=== PATIENT | male | born 1945 | race American Indian/Alaskan Native ===

== ENCOUNTER 2020-07-28 07:22 | Observation (INO) | payer MEDICARE ==
[2020-07-28] MEDS ORDERED: ASPIRIN EC 325 MG TAB PO ONE (07:56)
[2020-07-28] MEDS ORDERED: SODIUM CHLORIDE 0.9% 500 ML 500 ML IV SCH (08:00)
[2020-07-28] MEDS ORDERED: HEPARIN/NS 5000 UNIT/500ML 1,000 ML IR ONE (08:16)
[2020-07-28 08:28] LABS: Basophils % (Auto) 0.9 % (0.0-1.8); Eosinophils # (Auto) 0.1 K/mm3 (0.0-0.4); Eosinophils % (Auto) 1.6 % (0.0-4.3); Hematocrit 44.4 % (35.5-45.6); Hemoglobin 15.2 gm/dl (11.8-15.2); Lymphocytes # (Auto) 1.5 K/mm3 (1.2-5.4); Lymphocytes % (Auto) 28.7 % (13.4-35.0); Mean Corpuscular HGB Conc 34 % (32-34); Mean Corpuscular Volume 89 fl (84-94); Monocytes # (Auto) 0.4 K/mm3 (0.0-0.8); Monocytes % (Auto) 7.9 % (0.0-7.3); Platelet Count 243 K/mm3 (140-440); Red Cell Distribution Width 14.8 % (13.2-15.2)
[2020-07-28 08:38] LABS: INR 0.94 (0.87-1.13)
[2020-07-28 08:39] LABS: Partial Thromboplastin Time 23.9 Sec. (24.2-36.6)
[2020-07-28 08:41] LABS: BUN/Creatinine Ratio 12; Blood Urea Nitrogen 12 mg/dL (9-20); Hemolysis Index 3
[2020-07-28] MEDS ORDERED: CLOPIDOGREL 75 MG TAB ONE (08:43)
[2020-07-28] MEDS: CLOPIDOGREL 75 MG TAB PO SCH ×2 (08:51→15:27)
[2020-07-28] MEDS ORDERED: POTASSIUM CHLORIDE ER 20 MEQ TAB PO ONE ×2 (09:13→09:18)
[2020-07-28] MEDS: MIDAZOLAM 2 MG/2 ML INJ ONE ×2 (09:56→10:15)
[2020-07-28] MEDS: fentaNYL 100 MCG/2 ML INJ ONE ×2 (09:56→10:15)
[2020-07-28] MEDS: HEPARIN 10,000 UNITS/10 ML VIAL ONE ×3 (09:57→10:25)
[2020-07-28] MEDS: LIDOCAINE (2%) 20 MG/1 ML VIAL 20 ML MDV INFILTRATI ONE ×2 (09:57→10:15)
[2020-07-28] MEDS: VERAPAMIL 5 MG/2 ML INJ ONE ×2 (09:58→10:17)
[2020-07-28] MEDS: NITROGLYCERIN SYRINGE 3 ML ONE ×2 (09:59→10:17)
[2020-07-28] MEDS ORDERED: HEPARIN 10,000 UNITS/10 ML VIAL ONE (10:40)
[2020-07-28] MEDS ORDERED: CLOPIDOGREL 300 MG TAB ONE (10:48)
[2020-07-28] MEDS ORDERED: ALUM-MAG HYDROXIDE-SIMETHICONE 200-200-20MG/5ML ORAL LIQD 30 ML ONE (10:48)
[2020-07-28] MEDS ORDERED: DEXTROSE 50% IN WATER (25GM) 50 ML SYRINGE IV PRN (11:02)
--- NOTE | 2020-07-28 11:20 | Short Stay Summary ---
Short Stay Documentation Date of service: 07/28/20 - History H&P: obtained from office - Allergies and Medications Current Medications: Allergies No Known Allergies Allergy (Unverified 04/26/13 12:38) Home Medications Medication Instructions Recorded Confirmed Last Taken Type Aspirin [Baby Aspirin] 81 mg PO DAILY 09/16/13 07/28/20 07/27/20 History 81 mg Clopidogrel Bisulfate [Clopidogrel] 75 mg PO DAILY 09/16/13 07/28/20 07/28/20 08:21 History 1 tab Isosorbide Mononitrate [Isosorbide 30 mg PO DAILY 09/16/13 07/28/20 07/27/20 History Mononitrate ER] 1 tab Losartan/Hydrochlorothiazide 1 tab PO DAILY 09/16/13 07/28/20 07/27/20 History [Losartan-Hctz 100-25 mg Tab] 1 tab Metformin HCl 500 mg PO BID 09/16/13 07/28/20 09/15/13 History Metoprolol [Lopressor TAB] 50 mg PO DAILY 09/16/13 07/28/20 07/27/20 10:00 History Ranolazine [Ranexa] 500 mg PO BID 09/16/13 07/28/20 09/15/13 History Rosuvastatin Calcium [Crestor] 20 mg PO DAILY 09/16/13 07/28/20 09/15/13 History hydrALAZINE [Apresoline TAB] 25 mg PO TID 09/16/13 07/28/20 09/15/13 History Dapagliflozin Propanediol [Farxiga] 10 mg PO DAILY 07/28/20 07/28/20 07/27/20 History [address] [DepaKOTE DR] 250 mg PO DAILY 07/28/20 07/28/20 07/27/20 History 250 mg Exenatide Microspheres [Bydureon] 2 mg SQ 1XW 07/28/20 07/28/20 07/27/20 History 1 tab Furosemide [Lasix] 20 mg PO QDAY 07/28/20 07/28/20 07/27/20 10:00 History 1 tab Gabapentin [Neurontin] 100 mg PO Q8HR 07/28/20 07/28/20 07/27/20 History 100 mg Memantine HCl [Namenda Xr] 14 mg PO DAILY 07/28/20 07/28/20 07/27/20 History 14 mg Sitagliptin Phosphate [Januvia] 100 mg PO DAILY 07/28/20 07/28/20 07/27/20 History 100 mg amLODIPine [Norvasc] 10 mg PO DAILY 07/28/20 07/28/20 07/27/20 History 1 tab traMADoL [Ultram] 50 mg PO Q6HR PRN 07/28/20 07/28/20 07/27/20 History 50 mg Active Medications Hydrocodone Bitart/Acetaminophen (Hydrocodone/Acetaminophen 5-325 Mg Tab) 1 each PO Q6H PRN PRN Reason: Pain, Moderate (4-6) Amlodipine Besylate (Amlodipine 10 Mg Tab) 10 mg PO DAILY JESS Aspirin (Aspirin 81 Mg Tab Chew) 81 mg PO DAILY JESS Atorvastatin Calcium (Atorvastatin 20 Mg Tab) 20 mg PO QHS JESS Clopidogrel Bisulfate (Clopidogrel 75 Mg Tab) 75 mg PO QDAY [facility] Last Admin: 07/28/20 08:51 Dose: 75 mg Documented by: Dextrose (Dextrose 50% In Water (25gm) 50 Ml Syringe) 50 ml IV Q30MIN PRN; Protocol PRN Reason: Hypoglycemia Furosemide (Furosemide 20 Mg Tab) 20 mg PO QDAY [facility] Sodium Chloride (Nacl 0.9% 500 Ml) 500 mls @ 50 mls/hr IV DIRECT JESS Stop: 07/28/20 17:59 Last Admin: 07/28/20 09:59 Dose: 100 mls Documented by: Insulin Human Lispro (Insulin Lispro 100 Unit/Ml) 0 unit SUB-Q ACHS JESS; Protocol Isosorbide Mononitrate (Isosorbide Mononitrate Er 30 Mg Tab) 30 mg PO DAILY [facility] Metoprolol Succinate (Metoprolol Succinate Xl 50 Mg Tab) 50 mg PO QDAY [facility] Miscellaneous Medication (Losartan/Hydrochlorothiazide [Losartan-Hctz 100-25 Mg Tab]) 1 tab PO DAILY JESS - Brief post op/procedure progress note Date of procedure: 07/28/20 Pre-op diagnosis: CAD Post-op diagnosis: same Procedure: LHC with PCI - see dictated cath report Anesthesia: local Estimated blood loss: none Condition: stable - Disposition Condition at discharge: Good Disposition: [id number] TO HOME OR SELFCARE - Discharge Diagnoses (1) CAD (coronary artery disease) Status: Chronic (2) Stented coronary artery Status: Chronic (3) HTN (hypertension) Status: Chronic (4) Diabetes Status: Chronic (5) RENETTA (obstructive sleep apnea) Status: Chronic Short Stay Discharge Plan Activity: advance as tolerated Diet: low fat, low cholesterol, low salt, diabetic Wound: open to air, keep clean and dry, per your surgeon's advice Follow up with: THELMA JENSEN MD [Primary Care Provider] - 7 Days LEO DOLL MD [Staff Physician] - 7 Days ([place] office, 08/09/2020 @ 3:30PM)
[2020-07-28] MEDS ORDERED: HYDROcodone/ACETAMINOPHEN 5-325 MG TAB PO PRN (12:00)
--- NOTE | 2020-07-28 12:05 | Cardiac Catherization Report ---
LEFT HEART CATHETERIZATION PERCUTANEOUS CORONARY INTERVENTION/INTRAVASCULAR ULTRASOUND REPORT REFERRING PHYSICIAN: Dr. Maria Elena Max. CLINICAL INFORMATION: This is a 74-year-old -[place] gentleman with known history of coronary arterial disease, hypertension, diabetes, cholesterol, presents with recurrent chest pain with exertion despite medical therapy, is here for left heart catheterization. Procedure was done with moderate sedation, starting at 10:15 and finished at 10:49 which is 34 minutes of moderate sedation. Procedure was done via the right radial artery, sterile technique, local anesthesia, 6-Russian radial sheath inserted. PROCEDURE FINDINGS: Left system, JL3.5 catheter, left main is large and patent, bifurcates into large LAD, proximal mid stent patent. Diagonal 1 across the stent has mild ostial disease, but patent, small caliber diagonal 2 patent, but in the mid stent, there is a diffuse and focal area of 95% prior to a distal LAD stent is a wraparound LAD. Circumflex is a large caliber vessel, goes into a large ramus that is patent with mild luminal irregularities. Proximal circumflex medium caliber vessel, patent and bifurcates into small caliber OM1, OM2 that are patent. RCA engaged with JR4, is a large dominant vessel, proximal mid stent patent, distal has focal areas of 30%, PDA, PLV are small to medium caliber and patent. LV gram done in POLISH and REHMNA shows normal LV function, LVEDP 26 mmHg, LV is 156. Aortic is 155/74. No gradient across the aortic valve on pullback. PERCUTANEOUS/INTRAVASCULAR ULTRASOUND OF THE LAD: 1. Engaged the left system with EBU 3.75 guiding catheter. 2. A wire to distal LAD with a Runthrough wire. 3. Predilated with 2.5 x 12 balloon at 12 atmospheres x2 inflations. 4. Intravascular ultrasound shows a proximal, mid stent is patent, distal stent patent, but in the mid area, there is a reference vessel 3.0 x 3.3. 5. Then stented the mid LAD up into the distal stent with a drug-eluting Resolute 3.0 x 26 mm inflated at 14 atmospheres. 6. Post-dilated proximally and distally with 3.25 x 12 mm noncompliant balloon inflated at 12 atmospheres x2 inflations. Excellent angiographic result, reduced stenosis 95% down to 0. No dissection or perforation, no embolization noted. Guidewire was removed. Multiple angiograms revealed a good angiographic result. 7. A 6-Russian guiding catheter taken over guidewire, 6-Russian radial sheath was discontinued. Radial band applied. No hematoma, no bleeding. SUMMARY: 1. Successful PCI of the mid LAD with a drug-eluting Resolute [place] 3.0 x 26 mm, postdilated with 3.25 x 12 noncompliant balloon x2. 2. Left main patent, LAD proximal mid stent patent. Diagonal 1 and 2 small caliber vessel, ostial diagonal 1 disease. Distal LAD stent patent is wraparound LAD, ramus large caliber vessel, patent, mild luminal irregularities. Circumflex medium caliber goes into small caliber OM1, OM2 that are patent. RCA proximal mid stent patent, distal 30%. PDA, PLV patent, normal LV function. Continue risk factor modification. Continue aspirin and Plavix therapy and discussed in detail with the patient and the patient's family. JOB# [id number] MARIA DE JESUS/BETHANY
[2020-07-28] MEDS ORDERED: MEMANTINE HCL 14 MG PO SCH (15:45)
[2020-07-28] MEDS: INSULIN LISPRO 100 UNIT/ML SUB-Q SCH ×3 (15:51→22:15)
[2020-07-29 06:23] LABS: Basophils % (Auto) 0.6 % (0.0-1.8); Eosinophils # (Auto) 0.1 K/mm3 (0.0-0.4); Eosinophils % (Auto) 1.9 % (0.0-4.3); Hematocrit 42.3 % (35.5-45.6); Hemoglobin 14.4 gm/dl (11.8-15.2); Lymphocytes # (Auto) 1.8 K/mm3 (1.2-5.4); Lymphocytes % (Auto) 31.8 % (13.4-35.0); Mean Corpuscular HGB Conc 34 % (32-34); Mean Corpuscular Volume 89 fl (84-94); Monocytes # (Auto) 0.5 K/mm3 (0.0-0.8); Monocytes % (Auto) 8.5 % (0.0-7.3); Platelet Count 231 K/mm3 (140-440); Red Blood Count 4.75 M/mm3 (3.65-5.03); Red Cell Distribution Width 14.8 % (13.2-15.2)
[2020-07-29 06:38] LABS: BUN/Creatinine Ratio 11; Blood Urea Nitrogen 10 mg/dL (9-20); Calcium 8.3 mg/dL (8.4-10.2); Hemolysis Index 4
[2020-07-29] MEDS: MEMANTINE 5 MG TAB PO SCH ×2 (07:15→09:13)
[2020-07-29 08:24] VITALS: BP 139/84
--- NOTE | 2020-07-29 08:27 | XRay Report ---
CHEST 1 VIEW INDICATION: post pci COMPARISON: None FINDINGS: SUPPORT DEVICES: None. HEART / MEDIASTINUM: No significant abnormality. LUNGS / PLEURA: No significant pulmonary or pleural abnormality. No pneumothorax. ADDITIONAL FINDINGS: IMPRESSION: 1. No acute cardiopulmonary disease Signer Name: Hemant Fletcher MD Signed: 07/29/2020 8:23 AM Workstation Name: [id number]
[2020-07-29] MEDS: INSULIN LISPRO 100 UNIT/ML SUB-Q SCH (08:30)
[2020-07-29] MEDS: CLOPIDOGREL 75 MG TAB PO SCH (09:08)
[2020-07-29] MEDS ORDERED: ASPIRIN 81 MG TAB CHEW PO SCH (10:00)
[2020-07-29] MEDS ORDERED: CLOPIDOGREL 75 MG TAB PO SCH (10:00)
[2020-07-29] MEDS ORDERED: amLODIPine 10 MG TAB PO SCH (10:00)
[2020-07-29] MEDS ORDERED: FUROSEMIDE 20 MG TAB PO SCH (10:00)
[2020-07-29] MEDS ORDERED: LOSARTAN 50 MG TAB PO SCH (10:00)
[2020-07-29] MEDS ORDERED: NON-FORMULARY EACH (Losartan/Hydrochlorothiazide [Losartan-Hctz 100-25 Mg Tab] 1 EACH Tabl PO SCH (10:00)
[2020-07-29] MEDS ORDERED: hydroCHLOROthiazide 25 MG TAB PO SCH (10:00)
[2020-07-29] MEDS ORDERED: METOPROLOL SUCCINATE XL 50 MG TAB PO SCH (10:00)
--- NOTE | 2020-07-29 10:23 | Progress Note ---
Assessment and Plan Patient has successful PCI of the LAD with drug-eluting stent patient patent proximal LAD distal LAD stent RCA stent. Normal LV function continue dual antiplatelet therapy right wrist no hematoma. Patient being discharged from cardiovascular point of view - Patient Problems (1) CAD (coronary artery disease) Current Visit: Yes Status: Chronic Qualifiers: Coronary Disease-Associated Artery/Lesion type: [place] artery Associated angina: with unstable angina (2) Diabetes Current Visit: Yes Status: Chronic (3) HTN (hypertension) Current Visit: Yes Status: Chronic (4) RENETTA (obstructive sleep apnea) Current Visit: Yes Status: Chronic Subjective Date of service: 07/29/20 Principal diagnosis: Post PCI Interval history: No chest pain no shortness of breath Objective Vital Signs Temp Pulse Resp BP Pulse Ox 07/29/20 08:17 97.5 F L 73 18 139/84 96 07/29/20 03:42 98.7 F 62 16 149/82 97 07/28/20 23:29 97.9 F 72 17 176/93 95 07/28/20 22:00 70 07/28/20 20:16 18 07/28/20 19:12 98.3 F 71 16 152/87 97 07/28/20 15:44 97.4 F L 68 18 146/85 94 07/28/20 14:29 57 L 12 134/78 99 07/28/20 14:00 71 14 142/77 99 07/28/20 13:30 73 15 145/84 100 07/28/20 13:00 69 15 130/82 100 07/28/20 12:30 70 13 143/86 100 07/28/20 12:15 67 14 143/86 100 07/28/20 12:00 68 13 160/102 100 07/28/20 11:45 76 11 L 162/92 95 07/28/20 11:25 98.9 F 68 11 L 142/92 99 - Physical Examination General: Appears Well, No Apparent Distress HEENT: Neck: Positive: neck supple Cardiac: Positive: Reg Rate and Rhythm Lungs: Positive: Normal Exam Neuro: Positive: Grossly Intact Abdomen: Positive: Soft /Rectal: Normal Prostate, No Masses Skin: Musculoskeletal: No Fluid Collection, No Pain, Normal Range of Motion Gait: Normal Gait Extremities: - Labs and Meds CBC 07/29/20 Range/Units 04:46 WBC 5.8 (4.5-11.0) K/mm3 RBC 4.75 (3.65-5.03) M/mm3 Hgb 14.4 (11.8-15.2) gm/dl Hct 42.3 (35.5-45.6) % Plt Count 231 (140-440) K/mm3 Lymph # (Auto) 1.8 (1.2-5.4) K/mm3 Coke # (Auto) 0.5 (0.0-0.8) K/mm3 Eos # (Auto) 0.1 (0.0-0.4) K/mm3 Baso # (Auto) 0.0 (0.0-0.1) K/mm3 Comprehensive Metabolic Panel 07/29/20 Range/Units 04:46 Sodium 142 (137-145) mmol/L Potassium 3.6 (3.6-5.0) mmol/L Chloride 101.8 (98-107) mmol/L Carbon Dioxide 32 H (22-30) mmol/L BUN 10 (9-20) mg/dL Creatinine 0.9 (0.8-1.3) mg/dL Glucose 123 H (75-100) mg/dL Calcium 8.3 L (8.4-10.2) mg/dL - Imaging and Cardiology Cardiac cath: report reviewed (PCI of the mid LAD drug-eluting 3.0 x 26 mm) - Telemetry EKG Rhythm: Sinus Rhythm
--- NOTE | 2020-07-29 10:34 | Electrocardiograph Report ---
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
--- NOTE | 2020-07-29 10:37 | Electrocardiograph Report ---
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
== END 2020-07-29 12:33 | disposition home or self-care (01) ==
LOC: CATHLABREC 07:22 → 4A 10:58
PROVIDERS: ADMIT Internal Medicine; ATTEND Internal Medicine
DX: I25.10 Atherosclerotic heart disease of native coronary artery without angina pectoris (principal); F41.9 Anxiety disorder, unspecified; I10 Essential (primary) hypertension; E66.01 Morbid (severe) obesity due to excess calories; E11.9 Type 2 diabetes mellitus without complications; G47.33 Obstructive sleep apnea (adult) (pediatric); F32.0 Major depressive disorder, single episode, mild; R41.3 Other amnesia; Z98.61 Coronary angioplasty status; Z79.82 Long term (current) use of aspirin; Z79.4 Long term (current) use of insulin; Z79.899 Other long term (current) drug therapy; Z68.33 Body mass index [BMI] 33.0-33.9, adult
CPT/HCPCS: 36415; 71045; 80048; 82962; 84484; 85025; 85347; 85610; 85730; 92978; 93005; 93458; A9270; C1725; C1753; C1769; C1874; C1887; C1894; C9600; G0378; J1644; J2250; J3010; J7040; 92928; J1815; Q9967